=== PATIENT | male | born 1940 | race Caucasian/White ===

== ENCOUNTER 2016-07-31 06:38 | Outpatient (CLI) ==
--- NOTE | 2016-07-31 08:59 | MRI ---
EXAM: MRI right upper arm without contrast. HISTORY: Injured lifting. Possible biceps muscle tear. Pain. Bruising bicep area. No right uppe r arm surgery reported.. TECHNIQUE: Using a coil on a high field strength magnet multiplanar multisequence large field of vi ew imaging obtained through the level of the right humerus without intravenous gadolinium contrast. Note portions of the proximal as well as distal right humerus exclude from the field of view on all imaging sequences. Note this constitutes incomplete MR evaluation of the right shoulder as well as right elbow.. FINDINGS: I do not have prior radiographs of the right humerus available for comparison at the time of this dictation. Visualized bone marrow signal intensity the right humerus shows no acute fracture, stress fracture o r discrete lytic or blastic lesion. The right humeral head seated. Trace right glenohumeral joint e ffusion. The proximal extraarticular bicipital groove empty with fluid signal intensity. Full-thickness tear long head biceps tendon proximally. The origin along the bicipital anchor/supra glenoid tubercle n ot evaluated/excluded from the field of view. Torn distal tendon end retracted approximately 6 cm fr om the entrance of the extraarticular bicipital groove. Extensive fluid signal intensity/edema surr ounds the torn distal tendon end and continues to dissect distally. The myotendinous junction retra cted approximately 12 cm from the entrance of the extraarticular bicipital groove. Associated muscl e strain. The short head biceps origin from the coracoid process of the scapula not evaluated/exclu ded from the field of view. Otherwise the more distal short head of the biceps muscle intact. The distal insertion of the biceps tendon at the radial tuberosity not evaluated/excluded from the f ield of view. The course of the medial neurovascular bundle within normal limit in appearance. No r ight axillary lymphadenopathy.. IMPRESSION: Full-thickness tear long head biceps tendon proximally as described. Associated muscle strain. The distal insertion of the biceps tendon at the radial tuberosity below the right elbow j oint line not evaluated/excluded from the field of view.
== END 2016-07-31 06:39 | disposition home or self-care (01) ==
LOC: RAD 06:38
PROVIDERS: ATTEND Family Medicine
DX: S46.111A Strain of muscle, fascia and tendon of long head of biceps, right arm, initial encounter (principal)
CPT/HCPCS: 73218

== ENCOUNTER 2017-05-25 10:07 | Day surgery (SDC) ==
[2017-05-25] MEDS ORDERED: DIPRIVAN 20 ML VIAL IVP ONE (11:00)
[2017-05-25] MEDS ORDERED: VERSED ONE (11:00)
[2017-05-25] MEDS ORDERED: LIDOCAINE 1% 20 ML MDV ID STA (11:03)
[2017-05-25 15:18] VITALS: BP 116/65; TEMP 98.7
--- NOTE | 2017-05-26 10:56 | OP ---
PROCEDURE: COLONOSCOPY TO THE CECUM WITH SNARE POLYPECTOMY. ENDOSCOPIST: Rosemarie GRAHAM M.D. INDICATION: RECTAL BLEEDING. INSTRUMENT: FH-190. MEDICATION: PER ANESTHESIA. PROCEDURE: The patient was positioned for colonoscopy. The digital rectal exam was negative. The colonoscope was inserted through the anus and advanced to the cecum. In the cecum a small polyp is removed using snare cautery. Two polyps at 70 cm removed using snare cautery. These were 5 to 6 mm in size. Retroflex exam was otherwise normal. The patient tolerated the procedure well without immediate complication. Withdrawal time 6 minutes and 36 seconds. PLAN: 1. Reviewed pathology with repeat colonoscopy in 3 years. It should be noted that the [place] Bowel Prep Score = 9. CC: DR. JAROD JARA
== END 2017-05-25 12:30 | disposition home or self-care (01) ==
LOC: SURG 10:07
PROVIDERS: ATTEND Internal Medicine Gastroenterology
DX: K62.5 Hemorrhage of anus and rectum (principal); D12.0 Benign neoplasm of cecum; D12.4 Benign neoplasm of descending colon